=== PATIENT | female | born 1980 | race American Indian/Alaskan Native ===

== ENCOUNTER 2021-11-17 18:25 | Emergency (ER) | payer OTHER ==
[2021-11-17] MEDS ORDERED: IBUPROFEN 800 MG TAB PO ONE (22:34)
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
[2021-11-17 23:41] VITALS: BP 132/86
== END 2021-11-17 23:41 | disposition home or self-care (01) ==
LOC: ED 18:25
DX: S16.1XXA Strain of muscle, fascia and tendon at neck level, initial encounter (principal); R07.89 Other chest pain; I10 Essential (primary) hypertension; Z98.51 Tubal ligation status; Z79.899 Other long term (current) drug therapy; V87.7XXA Person injured in collision between other specified motor vehicles (traffic), initial encounter; Y93.89 Activity, other specified; Y92.488 Other paved roadways as the place of occurrence of the external cause; Y99.8 Other external cause status
CPT/HCPCS: 71046; 72040; 99283